=== PATIENT | male | born 1965 | race Caucasian/White ===

== ENCOUNTER 2017-11-17 07:58 | Observation (INO) | payer OTHER ==
[2017-11-17] VITALS (7 sets, daily range): BP systolic 146–169; BP diastolic 87–101; PULSE 65–88; RESP 18–20; TEMP 96.8–97.8; O2SAT 94–98
[~2017-11-17] VITALS: Ht 182.9 cm; Wt 105.5 kg
[~2017-11-17 07:58] MED LIST: OXYMETAZOLINE HCL 0.05% 15 ML NASAL SPRAY ONE
[2017-11-17] MEDS ORDERED: CHLORHEXIDINE GLUCONATE 2 % 1 PACK (2 CLOTHS) TOPICAL PRN (08:30)
[2017-11-17] MEDS ORDERED: AMPICILLIN/SULBAC 3 GM/NS 100 ML IV PRN ×2 (08:30)
[2017-11-17] MEDS ORDERED: METOPROLOL TARTRATE 25 MG TAB PO PRN (08:30)
[2017-11-17] MEDS ORDERED: LACTATED RINGER'S 1000 ML IV PRN (08:30)
[2017-11-17] MEDS ORDERED: SODIUM CHLORID 0.9% 500 ML IV PRN (08:30)
[2017-11-17] MEDS ORDERED: POVIDONE IODINE 5% (ANTISEPSIS KIT) 4 APPLICATIONS EACH NARE PRN (08:30)
[2017-11-17] MEDS ORDERED: LEVO100T5 PO (08:59)
--- NOTE | 2017-11-17 10:09 | EKG ---
Date Performed: 11/17/2017 Time Performed: 09:01:14 PTAGE: 52 years EKG: Sinus rhythm BORDERLINE LEFT AXIS DEVIATION BORDERLINE ECG NO PREVIOUS TRACING DOCTOR: Silvestre Bell Interpretating Date/Time 11/17/2017 10:07:42
[2017-11-17] MEDS ORDERED: FAMOTIDINE 20 MG/2 ML VIAL ONE (10:21)
[2017-11-17] MEDS ORDERED: MIDAZOLAM HCL 2 MG/2 ML VIAL ONE (10:21)
[2017-11-17] MEDS ORDERED: fentaNYL CITRATE 250 MCG/5 ML AMP ONE (11:07)
[2017-11-17] MEDS ORDERED: LIDOCAINE 1%/EPINEPHrine 1:100,000 SOLN 20 ML VIAL ONE (11:44)
[2017-11-17] MEDS ORDERED: MUPIROCIN 2% OINT 22 GM TUBE ONE (12:03)
[2017-11-17] MEDS ORDERED: *Lactated Ringer's INJ 1,000 ML ONE (12:36)
[2017-11-17] MEDS: LACTATED RINGER'S 1000 ML INJ 1,000 ML IV SCH ×2 (13:30→22:47)
[2017-11-17] MEDS ORDERED: ONDANSETRON HCL 4 MG/2 ML VIAL IV PRN (13:30)
[2017-11-17] MEDS: ACETAMINOPHEN/HYDROcodone 325 MG/5 MG TAB PO PRN ×2 (15:56→20:23)
[2017-11-17] MEDS: AMPICILLIN/SULBAC 3 GM/NS 100 ML IV SCH ×2 (18:04)
[2017-11-18] VITALS: BP 135/78; PULSE 87; RESP 20; TEMP 96.1; O2SAT 97
[2017-11-18] MEDS: AMPICILLIN/SULBAC 3 GM/NS 100 ML IV SCH ×2 (02:25)
[2017-11-18] MEDS: ACETAMINOPHEN/HYDROcodone 325 MG/5 MG TAB PO PRN ×2 (02:29→07:50)
[2017-11-18] MEDS ORDERED: LEVOTHYROXINE SODIUM 100 MCG TAB PO SCH (06:00)
[2017-11-19] MEDS ORDERED: DEXAMETHASONE SOD PHOS 4 MG/ML VIAL IV ONE (12:00)
[2017-11-19] MEDS ORDERED: ePHEDrine/NS 25 MG/5 ML SYRINGE IV ONE (12:00)
[2017-11-19] MEDS ORDERED: PROPOFOL 200 MG/20 ML AMP IV ONE (12:00)
[2017-11-19] MEDS ORDERED: LIDOCAINE HCL 1% PF 5 ML SYRINGE OTHER ONE (12:00)
[2017-11-19] MEDS ORDERED: PHENYLEPH/NS 1000 MCG/10 ML SYR IV ONE (12:00)
[2017-11-19] MEDS ORDERED: ONDANSETRON HCL 4 MG/2 ML VIAL IV PUSH ONE (12:00)
--- NOTE | 2017-12-09 11:53 | MP ---
cc: Davey Pang MD DATE OF OPERATION: 11/17/2017 DATE OF PROCEDURE: 11/17/2017 SURGEON: Davey Pang MD PREOPERATIVE DIAGNOSES: 1. Nasal airway obstruction. 2. Nasal septal deviation. 3. Hypertrophy of inferior turbinates. POSTOPERATIVE DIAGNOSES: 1. Nasal airway obstruction. 2. Nasal septal deviation. 3. Hypertrophy of inferior turbinates. PROCEDURE PERFORMED: 1. Open repair of nasal septal fracture. 2. Bilateral submucosal resection of inferior turbinates. INDICATIONS FOR PROCEDURE: Documented in the history and physical. DESCRIPTION OF PROCEDURE: The patient was taken to OR #2 and placed in the supine position. Following induction of general anesthesia and intubation, the nose was packed bilaterally with cotton pledgets saturated in 0.05% oxymetazoline and the septal mucosa and inferior turbinates were injected with a total of 10 mL of 1% Xylocaine with epinephrine 1:100,000, and he was then prepped and draped for surgery. Packing was removed and a hemitransfixion incision was made in the left nasal vestibule and through this incision, the septal mucosa was elevated bilaterally as far as the junction of the bony and cartilaginous septum. This allowed for end on examination of the quadrangular cartilage which showed evidence of old fracture obstructing the nasal airways bilaterally but predominantly on the right side. A cumulative area of 2 x 2.5 cm was removed using a caudal elevator and [place]-Paiz forceps. This was completed, preserving 1.5 cm dorsal and caudal cartilaginous struts. When this was completed, the mucosa was elevated from the bony septum and the maxillary crest, and these were removed using Francesco-Paiz forceps and Richard-Morales septal forceps on the bony septum. The maxillary crest was removed using a 6 mm Reza chisel and preserving the anterior nasal spine. The incision was then closed with a running suture of 4-0 chromic and the mucosal layers of septum were approximated to each other with a quilting stitch of 4-0 plain gut. The inferior turbinates were then fractured out medially and stab incisions were opened along their inferior surfaces. Through these incisions the submucosal soft tissue was reduced using a curet and preserving the conchal bone. The remnants of the inferior turbinates were then relateralized to the lateral nasal wall. The nose was then packed with 7.5 cm Rapid Rhino packs each inflated with 7 mL of air and the procedure was terminated. The patient was reversed from anesthesia and taken to recovery in good condition. There were no complications. Blood loss was 100 mL. MD BINTA Castillo/GLENDY , 11:29 AM , 11:52 AM
== END 2017-11-18 08:13 | disposition home or self-care (01) ==
LOC: PHSDC 07:58 → PH3B 13:39
PROVIDERS: ADMIT Otolaryngology; ATTEND Otolaryngology
DX: J34.89 Other specified disorders of nose and nasal sinuses (principal); J34.2 Deviated nasal septum; J34.3 Hypertrophy of nasal turbinates; R94.31 Abnormal electrocardiogram [ECG] [EKG]
CPT/HCPCS: 00160; 30140; 30520; 93005; 94762; 96361; 96365; G0378; J0295; J2250; J3010; J7120; J1100; J2370; J2405